=== PATIENT | male | born 1990 | race Caucasian/White ===

== ENCOUNTER 2016-12-17 04:42 | Emergency (ER) | payer OTHER ==
[2016-12-17] MEDS ORDERED: LIDOCAINE 1% INJ-PF (10 MG/ML) 30 ML SDV INJ ONE (07:42)
--- NOTE | 2016-12-17 07:43 | ER Document Report ---
ED Wound - General Chief Complaint: Laceration Stated Complaint: LEG LACERATION Time seen by provider: 07:43 Mode of Arrival: Medic Information source: Patient, Friend Notes: 26 yo admitted alcoholic cut leg on table in kitchen early this am. No head injury. Difficult to wake up. Girlfriend who is sober is in the room. Tetanus status is unknown. - Related Data Allergies/Adverse Reactions: No Known Allergies Allergy (Verified 12/17/16 05:05) Home Medications: Current Home Medications Dextroamphetamine/Amphetamine [Adderall 30 mg Tablet] 1 tab PO DAILY 12/17/16 [ History] Past Medical History - General Information source: Patient - Social History Smoking Status: Current Every Day Smoker Frequency of alcohol use: Heavy - 5 days of week, shakes if he doesn't drink Drug Abuse: None Lives with: Spouse/Significant other Family History: Hyperlipidemia - Medical History Medical History: Negative Psychiatric Medical History: Reports: Hx Attention Deficit Hyperactivity Disorder Traumatic Medical History: Reports: Hx Fractures Past Surgical History: Reports: Hx Abdominal Surgery, Hx Oral Surgery - screws to jaw, teeth - Immunizations Immunizations up to date: Yes Hx Diphtheria, Pertussis, Tetanus Vaccination: Yes - 2007 Review of Systems - Review of Systems Constitutional: No symptoms reported EENT: No symptoms reported Cardiovascular: No symptoms reported Respiratory: No symptoms reported Gastrointestinal: No symptoms reported Genitourinary: No symptoms reported Male Genitourinary: No symptoms reported Musculoskeletal: No symptoms reported Skin: See HPI Hematologic/Lymphatic: No symptoms reported Neurological/Psychological: No symptoms reported Physical Exam - Vital signs Vitals: Temp Pulse Resp BP Pulse Ox 97.6 F 91 18 125/81 98 12/17/16 04:55 12/17/16 04:55 12/17/16 04:55 12/17/16 04:55 12/17/16 04:55 Interpretation: Normal - General General appearance: Appears well, Other - mood labile, was difficult to wake up , smells of ETOH - HEENT Head: Normocephalic, Atraumatic. No: Abrasions, Estrada's sign, Ecchymosis, [place]'s eyes Eyes: Normal Conjunctiva: Injected Extraocular movements intact: Yes - no nystagmus Pupils: PERRL Neck: Supple - non tender - Respiratory Respiratory status: No respiratory distress Chest status: Nontender Breath sounds: Normal Chest palpation: Normal - Cardiovascular Rhythm: Regular Heart sounds: Normal auscultation Murmur: No - Abdominal Inspection: Normal Distension: No distension Bowel sounds: Normal Tenderness: Nontender. No: Tender Organomegaly: No organomegaly - Back Back: Normal, Nontender - Extremities General upper extremity: Normal inspection, Nontender, Normal color, Normal ROM , Normal temperature General lower extremity: Normal inspection, Nontender, Normal color, Normal ROM , Normal temperature, Normal weight bearing. No: Mor's sign Thigh: Laceration - 10 cm right anterior linear laceration to subq tissue - Neurological Neuro grossly intact: Yes Cognition: Normal Orientation: AAOx4 [place] Coma Scale Eye Opening: Spontaneous [place] Coma Scale Verbal: Oriented [place] Coma Scale Motor: Obeys Commands [place] Coma Scale Total: 15 Speech: Normal Motor strength normal: LUE, RUE, LLE, RLE Sensory: Normal - Psychological Associated symptoms: Normal affect, Normal mood - Skin Skin Temperature: Warm Skin Moisture: Dry Skin Color: Normal Notes: see above Course - Re-evaluation Re-evalutation: 12/17/16 09:[address] Lyons states patient can go home with a sober [employer] truck driver who will take responsiblity for him. Girlfriend is also sober. - Vital Signs Vital signs: Temp Pulse Resp BP Pulse Ox 97.8 F 79 18 134/90 H 95 12/17/16 09:22 12/17/16 09:22 12/17/16 09:22 12/17/16 09:22 12/17/16 09:22 Procedures - Laceration/Wound Repair Right Leg Time completed: 09:00 Wound length (cm): 10 Wound's Depth, Shape: Linear Laceration pre-procedure: Sterile drapes applied, Other - surgiscrub Volume Anesthetic (mLs): 15 Wound explored: Clean Irrigated w/ Saline (mLs): 200 Wound Repaired With: Sutures Suture Size/Type: 3:0, Nylon Number of Sutures: 9 - vertical mattress Layer Closure?: No Post-procedure wound care: Sterile dressing applied - bacitracin, coban Discharge - Discharge Clinical Impression: right leg laceration repair, Alcoholism Condition: Good Disposition: HOME, SELF-CARE Instructions: Antibiotic Ointment Protection (OM), Tetanus Immunization Given (OM), Chronic Alcoholism (OM) Additional Instructions: elevate leg today resources given for alcohol rehab which you are not choosing today motrin for pain sutures out in 12 days Referrals: VIRGEN ALBA FNP [Primary Care Provider] - Follow up as needed
[2016-12-17] MEDS ORDERED: DIPH/PERTUSS(ACELL)/TETANUS VAC/PF 0.5 ML SYR (>=10YO) IM ONE (09:02)
[2016-12-17 09:28] VITALS: BP 134/90
== END 2016-12-17 09:28 | disposition home or self-care (01) ==
LOC: ER 04:42
PROC: 0HQKXZZ Repair Right Lower Leg Skin, External Approach (ICD-10-PCS; principal; 2016-12-17)
DX: S81.811A Laceration without foreign body, right lower leg, initial encounter (principal); F10.20 Alcohol dependence, uncomplicated; W22.03XA Walked into furniture, initial encounter; F17.200 Nicotine dependence, unspecified, uncomplicated; Z23 Encounter for immunization
CPT/HCPCS: 90471; 90715; 99283

== ENCOUNTER 2017-03-27 14:03 | Emergency (ER) | payer OTHER ==
--- NOTE | 2017-03-27 15:26 | ER Document Report ---
ED Substance Abuse / Acc. OD - General Chief Complaint: ETOH Abuse Stated Complaint: PSYCH EVALUATION Time Seen by Provider: 03/27/17 15:14 Mode of Arrival: Ambulatory Information source: Patient, Parent Notes: This is a 26-year-old male with a history of alcohol abuse who presents intoxicated and threatening self-harm. Majority of the history is taken from patient's father. Patient's father states that he received a phone call earlier today from the patient states stating that he was going to cut himself and kill himself. Father states that he found patient's apartment in a state of disarray. Patient states that he drinks too much and would like some help with this. He still states that he wants to harm himself. - Related Data Allergies/Adverse Reactions: No Known Allergies Allergy (Verified 12/17/16 05:05) Past Medical History - General Information source: Parent Cannot obtain history due to: Uncooperative, Altered mental status - Social History Smoking Status: Unknown if Ever Smoked Frequency of alcohol use: Heavy Drug Abuse: None Family History: Hyperlipidemia Renal/ Medical History: Denies: Hx Peritoneal Dialysis Psychiatric Medical History: Reports: Hx Attention Deficit Hyperactivity Disorder Traumatic Medical History: Reports: Hx Fractures Past Surgical History: Reports: Hx Abdominal Surgery, Hx Oral Surgery - screws to jaw, teeth - Immunizations Immunizations up to date: Yes Hx Diphtheria, Pertussis, Tetanus Vaccination: Yes - 2007 Review of Systems - Review of Systems -: Yes ROS unobtainable due to patient's medical condition Physical Exam - Vital signs Vitals: Temp Pulse Resp BP Pulse Ox 98.9 F 100 20 144/93 H 96 03/27/17 14:07 03/27/17 14:07 03/27/17 14:07 03/27/17 14:07 03/27/17 14:07 - Notes Notes: PHYSICAL EXAMINATION: GENERAL: Well-nourished adult male who is intoxicated and uncooperative. He smells of alcohol. He is conversant. HEAD: Atraumatic, normocephalic. EYES: Pupils equal round and reactive to light, extraocular movements intact, sclera anicteric, conjunctiva are normal. ENT: nares patent, oropharynx clear without exudates. Moist mucous membranes. NECK: Normal range of motion, supple without lymphadenopathy LUNGS: Breath sounds clear to auscultation bilaterally and equal. No wheezes rales or rhonchi. HEART: Regular rate and rhythm without murmurs ABDOMEN: Soft, nontender, normoactive bowel sounds. EXTREMITIES: Normal range of motion NEUROLOGICAL: Cranial nerves grossly intact. Moves all 4 spontaneously. Not cooperative with full neurologic exam PSYCH: Anxious, agitated, noncooperative and threatening self-harm. Course - Re-evaluation Re-evalutation: 03/27/17 16:34 Patient has become increasingly aggressive and violent in the emergency department. He has been placed in restraints for his protection and the protection of the staff. He will also be given medication to include Haldol, Benadryl, and Ativan. At this time he is violent and aggressive and not able to be redirected. - Vital Signs Vital signs: Temp Pulse Resp BP Pulse Ox 97.7 F 73 16 136/79 H 93 03/28/17 13:28 03/28/17 13:28 03/28/17 03:24 03/28/17 13:28 03/28/17 13:28 - Laboratory Result Diagrams: 03/27/17 16:05 03/28/17 10:40 Laboratory results interpreted by me: 03/27/17 03/27/17 03/28/17 16:05 16:05 10:40 RBC 5.69 H Sodium 152.5 H Potassium 5.9 H Glucose 118 H Total Protein 9.0 H Albumin 5.4 H Salicylates < 1.0 L Acetaminophen < 10 L Serum Alcohol 316 H* Discharge - Discharge Clinical Impression: Alcohol abuse Condition: Stable Disposition: HOME, SELF-CARE Additional Instructions: Acute Alcohol Intoxication Your evaluation revealed very high levels of alcohol. You can from drinking a large amount of alcohol rapidly! Further, there's the risk of falls , traffic accidents, and fights. A high portion (about 50 percent) of the serious injuries seen in hospital emergency rooms are caused by alcohol. Alcohol overdosage is usually due to an underlying emotional or psychiatric problem. You may benefit from counselling. If "binge" drinking is an ongoing problem for you, or if you drink ANY AMOUNT of alcohol EVERY day, you most likely have a tendency to alcoholism. You should avoid alcohol totally. We can refer you for treatment. Persons with alcohol problems are often also prone to other addictions -- you should discuss any use of medications or drugs with the doctor. Please follow up with drug and alcohol treatment. Please return if your symptoms worsen. Alcohol withdrawal can be deadly. Please follow medical advice. Referrals: VIRGEN ALBA FNP [Primary Care Provider] - Follow up as needed
--- NOTE | 2017-03-27 16:09 | PSYCHOLOGICAL NOTE ---
Psych Note - Psych Note Psych Note: Patient is a 26 year old male who presented with c/o SI, per his father. Attempted to evaluate the patient; however, he presents with slurred speech and making nonsensical statements. Patient is likely acutely intoxicated as he also smells of alcohol. Patient is cursing loudly and has been placed n 4pt restraints for everyone's safety and his own. Will evaluate at a later time.
[2017-03-27 16:31] LABS: ABSOLUTE BASOPHILS # (AUTO) 0.1 10^3/uL (0.0-0.2); ABSOLUTE EOSINOPHILS # (AUTO) 0.2 10^3/uL (0.0-0.6); ABSOLUTE MONOCYTES (AUTO) 0.4 10^3/uL (0.1-1.4); ABSOLUTE NEUT (AUTO) 3.6 10^3/uL (1.7-8.2); BASOPHILS % (AUTO) 0.8 % (0-2); HEMATOCRIT 49.7 % (37.9-51.0); HEMOGLOBIN 16.2 g/dL (13.5-17.0); HGB HCT DIFFERENCE -1.1; LYMPHOCYTES % (AUTO) 41.8 % (13-45); MEAN CORPUSCULAR HEMOGLOBIN 28.5 pg (27.0-33.4); MEAN CORPUSCULAR HGB CONC 32.6 g/dL (32.0-36.0); MEAN CORPUSCULAR VOLUME 88 fl (80-97); MONOCYTES % (AUTO) 5.2 % (3-13); RED BLOOD COUNT 5.69 10^6/uL (4.35-5.55); RED CELL DISTRIBUTION WIDTH 13.8 % (11.5-14.0); SEGMENTED NEUTROPHILS % (AUTO) 49.2 % (42-78); WHITE BLOOD COUNT 7.3 10^3/uL (4.0-10.5)
[2017-03-27] MEDS ORDERED: LORAZEPAM INJ 2 MG/1 ML VIAL IV ONE (16:33)
[2017-03-27] MEDS ORDERED: DIPHENHYDRAMINE HCL 50 MG/ML VIAL IV ONE (16:33)
[2017-03-27] MEDS ORDERED: HALOPERIDOL LACTATE INJ 5 MG/1 ML VIAL IV ONE (16:33)
[2017-03-27 16:53] LABS: ALANINE AMINOTRANSFERASE 45 U/L (21-72); ALBUMIN 5.4 g/dL (3.5-5.0); ALKALINE PHOSPHATASE 62 U/L (38-126); ANION GAP 19 (5-19); ASPARTATE AMINO TRANSFERASE 42 U/L (17-59); BILIRUBIN,DIRECT 0.2 mg/dL (0.0-0.4); BILIRUBIN,TOTAL 0.7 mg/dL (0.2-1.3); BLOOD UREA NITROGEN 15 mg/dL (7-20); CALCIUM 9.9 mg/dL (8.4-10.2); CARBON DIOXIDE 27 mmol/L (22-30); CHLORIDE 107 mmol/L (98-107); CREATININE RESULT 0.92 mg/dL (0.52-1.25); GLUCOSE 101 mg/dL (75-110); POTASSIUM 5.9 mmol/L (3.6-5.0); SODIUM 152.5 mmol/L (137-145)
[2017-03-27 17:02] LABS: ALCOHOL 316 mg/dL (NONE DETECTED)
[2017-03-27] MEDS ORDERED: NORMAL SALINE 1000 ML 1,000 ML IV ONE (20:31)
--- NOTE | 2017-03-27 21:10 | EKG REPORT ---
SEVERITY:- NORMAL ECG - SINUS RHYTHM : Confirmed by: Cally Issa 27-Mar-2017 21:09:43
[2017-03-28 05:38] LABS: APPEARANCE,URINE CLEAR; BILIRUBIN,URINE NEGATIVE (NEGATIVE); GLUCOSE, URINE NEGATIVE (NEGATIVE); KETONES,URINE NEGATIVE (NEGATIVE); LEUKOCYTE ESTERASE,URINE NEGATIVE (NEGATIVE); NITRITE,URINE NEGATIVE (NEGATIVE); PROTEIN,URINE NEGATIVE (NEGATIVE); URINE SPECIFIC GRAVITY 1.015; UROBILINOGEN,URINE NEGATIVE mg/dL (<2.0)
[2017-03-28 05:45] LABS: URINE BARBITURATES SCREEN NEGATIVE; URINE METHADONE SCREEN NEGATIVE; URINE OPIATES LOW NEGATIVE; URINE PHENCYCLIDINE SCREEN NEGATIVE
[2017-03-28 12:43] LABS: ANION GAP 11 (5-19); BLOOD UREA NITROGEN 17 mg/dL (7-20); CALCIUM 9.9 mg/dL (8.4-10.2); CARBON DIOXIDE 29 mmol/L (22-30); CHLORIDE 98 mmol/L (98-107); CREATININE RESULT 0.85 mg/dL (0.52-1.25); GLUCOSE 118 mg/dL (75-110); SODIUM 137.7 mmol/L (137-145)
[2017-03-28 12:44] LABS: ALCOHOL < 10 mg/dL (NONE DETECTED)
[2017-03-28 12:56] LABS: POTASSIUM 4.3 mmol/L (3.6-5.0)
--- NOTE | 2017-03-28 13:17 | ER Document Report ---
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 Onset: Just prior to arrival Onset was: Sudden Suicide Risk Factors: Frightened friends/family, Substance abuse - ETOH Normal mood: Yes Associated symptoms: Normal affect, Normal mood, Aggressive - at arrival, Agitated - at arrival, Irritable - at arrival, Labile - at arrival Similar symptoms previously: Yes - long hx of ETOH abuse Recently seen / treated by doctor: No <RUTHANN GÓMEZ - Last Filed: 03/28/17 13:08> <LUCY FRANCE - Last Filed: 03/28/17 13:21> - General Chief Complaint: ETOH Abuse Stated Complaint: PSYCH EVALUATION Time Seen by Provider: 03/27/17 15:14 - HPI Notes: Patient is a 26-year-old male who initially presented yesterday evening acutely intoxicated. Patient was held under the involuntary commitment for his safety and the safety of others due to acute agitation and reports of SI. Patient this morning states he is not suicidal, but does acknowledge that he has a drinking problem. Patient reports he is agreeable to engage in drug and alcohol treatment. Patient and mother were provided contact information for local resources, to include the [facility]. Patient endorses daily liquor and beer drinking patient is psychiatrically cleared and recommended for recent IVC.. Patient's mother is bedside and asked numerous questions related to placement at the treatment center and/or other treatment centers. Answered all questions to the best of my ability. Patient is alert and oriented 4. Mood is irritable with normal affect. Patient denies suicidal/homicidal ideations, intent, plan, means. Patient denies A/VH; delusions not noted. Thought processes were organized, but guarded. Conversational speech was WNL for prosody. Intellectual abilities were estimated within average range. Attention and focus were fair. Insight, judgment, impulse control are poor. Unspecified alcohol use disorder Patient no longer meets criteria as he denies SI/HI. Patient is interested in substance abuse treatment, specifically alcohol detox. Patient and mother were provided resources to include the [facility]. Information was faxed to the [facility] to assist in facilitating placement. I consulted with Dr. Durán in regards to the care management of this patient. (RUTHANN GÓMEZ) - Related Data Allergies/Adverse Reactions: No Known Allergies Allergy (Verified 12/17/16 05:05) Past Medical History - General Information source: Parent - Social History Smoking Status: Current Every Day Smoker Cigarette use (# per day): Yes Chew tobacco use (# tins/day): No Smoking Education Provided: Yes Frequency of alcohol use: Heavy Drug Abuse: None Family History: Hyperlipidemia Patient has suicidal ideation: No Patient has homicidal ideation: No Renal/ Medical History: Denies: Hx Peritoneal Dialysis Psychiatric Medical History: Reports: Hx Attention Deficit Hyperactivity Disorder Traumatic Medical History: Reports: Hx Fractures Past Surgical History: Reports: Hx Abdominal Surgery, Hx Oral Surgery - screws to jaw, teeth - Immunizations Immunizations up to date: Yes Hx Diphtheria, Pertussis, Tetanus Vaccination: Yes - 2007 <RUTHANN GÓMEZ - Last Filed: 03/28/17 13:08> Course - Laboratory Result Diagrams: 03/27/17 16:05 03/28/17 10:40 <RUTHANN GÓMEZ - Last Filed: 03/28/17 13:08> - Laboratory Result Diagrams: 03/27/17 16:05 03/28/17 10:40 <LUCY FRANCE - Last Filed: 03/28/17 13:21> - Re-evaluation Re-evalutation: 03/28/17 13:21 Patient denies current SI. He is willing to proceed with voluntary alcohol rehab. Family supportive. Appropriate for discharge today. (LUCY FRANCE) - Vital Signs Vital signs: Temp Pulse Resp BP Pulse Ox 97.8 F 96 16 129/84 H 96 03/28/17 06:18 03/28/17 06:18 03/28/17 03:24 03/28/17 06:18 03/28/17 06:18 - Laboratory Laboratory results interpreted by ak: 03/27/17 03/27/17 03/28/17 16:05 16:05 10:40 RBC 5.69 H Sodium 152.5 H Potassium 5.9 H Glucose 118 H Total Protein 9.0 H Albumin 5.4 H Salicylates < 1.0 L Acetaminophen < 10 L Serum Alcohol 316 H* Discharge <RUTHANN GÓMEZ - Last Filed: 03/28/17 13:08> <LUCY FRANCE - Last Filed: 03/28/17 13:21> - Discharge Clinical Impression: Alcohol abuse Condition: Stable Disposition: HOME, SELF-CARE Additional Instructions: Acute Alcohol Intoxication Your evaluation revealed very high levels of alcohol. You can from drinking a large amount of alcohol rapidly! Further, there's the risk of falls , traffic accidents, and fights. A high portion (about 50 percent) of the serious injuries seen in hospital emergency rooms are caused by alcohol. Alcohol overdosage is usually due to an underlying emotional or psychiatric problem. You may benefit from counselling. If "binge" drinking is an ongoing problem for you, or if you drink ANY AMOUNT of alcohol EVERY day, you most likely have a tendency to alcoholism. You should avoid alcohol totally. We can refer you for treatment. Persons with alcohol problems are often also prone to other addictions -- you should discuss any use of medications or drugs with the doctor. Please follow up with drug and alcohol treatment. Please return if your symptoms worsen. Alcohol withdrawal can be deadly. Please follow medical advice. Referrals: VIRGEN ALBA FNP [Primary Care Provider] - Follow up as needed
[2017-03-28 13:34] VITALS: BP 136/79
== END 2017-03-28 13:30 | disposition home or self-care (01) ==
LOC: ER 14:03
DX: F10.129 Alcohol abuse with intoxication, unspecified (principal); F17.210 Nicotine dependence, cigarettes, uncomplicated
CPT/HCPCS: 93005; 99285; 96374; 96375; 36415; 80307 ×4; 85025; 80048; 80053; 81001; 93010; J1200; J1630; J2060; J7030

== ENCOUNTER 2017-06-25 01:37 | Emergency (ER) | payer OTHER ==
[2017-06-25] MEDS ORDERED: LIDOCAINE 1% INJ (10 MG/ML) 10 ML MDV INJ ONE (01:52)
[2017-06-25] MEDS ORDERED: LIDOCAINE 1% INJ-PF (10 MG/ML) 30 ML SDV ONE (02:05)
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
[2017-06-25 03:29] VITALS: BP 121/79
== END 2017-06-25 03:30 | disposition home or self-care (01) ==
LOC: ER 01:37
PROC: 0HQEXZZ Repair Left Lower Arm Skin, External Approach (ICD-10-PCS; principal; 2017-06-25)
DX: S51.812A Laceration without foreign body of left forearm, initial encounter (principal); X99.8XXA Assault by other sharp object, initial encounter
CPT/HCPCS: 99283

== ENCOUNTER 2019-05-02 21:04 | Emergency (ER) | payer OTHER ==
[2019-05-03] MEDS ORDERED: NORMAL SALINE 1000 ML 1,000 ML IV ONE (00:45)
--- NOTE | 2019-05-03 02:00 | RADIOLOGY REPORT (SQ) ---
EXAM DESCRIPTION: XR CHEST 1 VIEW COMPLETED DATE/TME: 05/03/2019 00:45 CLINICAL HISTORY: 28 years Male, dyspnea COMPARISON: None. NUMBER OF VIEWS/TECHNIQUE: 1/AP FINDINGS: Adequate lung volume, clear parenchyma, normal cardiac silhouette, and intact bony thorax. IMPRESSION: No acute cardiopulmonary findings.
--- NOTE | 2019-05-03 04:37 | ER Document Report ---
ED General - General Chief Complaint: Overdose Stated Complaint: POSSIBLE OVERDOSE Time Seen by Provider: 05/03/19 00:31 Primary Care Provider: VIRGEN ALBA FNP [Primary Care Provider] - Follow up as needed Notes: Patient is a pleasant 28-year-old male who presents after accidental heroin overdose. Patient says he only uses heroin occasionally. He says that tonight he snorted some heroin and is lessening remembered. His girlfriend walked him and found him cyanotic and not breathing. Paramedics arrived and gave him Narcan and immediately awoke with the Narcan. Patient says he does not try to hurt himself. He says he was driving. He denies being suicidal. He denies any other complaints at this time and says he is otherwise healthy. - Related Data Allergies/Adverse Reactions: No Known Allergies Allergy (Verified 12/17/16 05:05) Past Medical History - Social History Smoking Status: Never Smoker Frequency of alcohol use: None Drug Abuse: Heroin Family History: Hyperlipidemia Patient has suicidal ideation: No Patient has homicidal ideation: No Renal/ Medical History: Denies: Hx Peritoneal Dialysis Psychiatric Medical History: Reports: Hx Attention Deficit Hyperactivity Disorder Traumatic Medical History: Reports: Hx Fractures Past Surgical History: Reports: Hx Abdominal Surgery, Hx Oral Surgery - screws to jaw, teeth - Immunizations Immunizations up to date: Yes Hx Diphtheria, Pertussis, Tetanus Vaccination: Yes - 2007 Review of Systems - Review of Systems Notes: My Normal Review Basic REVIEW OF SYSTEMS: CONSTITUTIONAL : Denies fever, chills, or sweats. Denies recent illness. EENT: Denies eye, ear, throat, or mouth pain or symptoms. Denies nasal or sinus congestion. RESPIRATORY: Became apneic after heroin overdose. GASTROINTESTINAL: Denies abdominal pain. Vomiting MUSCULOSKELETAL: Denies neck or back pain or joint pain or swelling. SKIN: Denies rash or skin lesions. NEUROLOGICAL: Denies altered mental status or loss of consciousness. Denies headache. Denies weakness or paralysis or loss of use of either side. Denies problems with gait or speech. Denies sensory or motor loss. ALL OTHER SYSTEMS REVIEWED AND NEGATIVE. Physical Exam - Vital signs Vitals: Resp Pulse Ox 16 100 05/02/19 21:09 05/02/19 21:09 - Notes Notes: General Appearance: Well nourished, little bit somnolent, cooperative, no acute distress, no obvious discomfort. Vitals: reviewed, See vital signs table. Head: no swelling or tenderness to the head Eyes: PERRL, EOMI, Conjuctiva clear Mouth: No decreasd moisture Lungs: No wheezing, No rales, No rhonci, No accessory muscle use, good air exch woody bilaterally. Heart: Normal rate, Regular rythm, No murmur, no rub Abdomen: Normal BS, soft, No rigidity, No abdominal tenderness, No guarding, no rebound Extremities: strength 5/5 in all extremities, good pulses in all extremities, no swelling or tenderness in the extremities, no edema. Skin: warm, dry, appropriate color, no rash Neuro: speech clear, oriented x 3, normal affect, responds appropriately to questions. Course - Re-evaluation Re-evalutation: 05/03/19 07:02 Patient was observed on monitor for several hours. He is now awake and alert and walking without any difficulty. Is not slurring his words. He has no hypoxemia. He is well-appearing. I feel he safe to be discharged home. I talked patient about the dangers of heroin use and to avoid using it ever again. He is not using regular basis and just uses once in a while. I informed him that recurrent uses of heroine would eventually lead to him not breathing and could potentially cause him . I did prescribe Narcan. He says he will avoid heroin use at all costs; however, I informed him that some people still go back to using therefore I would still prefer that he fill the prescription for Narcan and kept it with him in case he had a relapse. Patient otherwise looks well and has no further concerns. Patient will be discharged home. Patient's girlfriend is at bedside and will be driving him home. Dictation of this chart was performed using voice recognition software; therefore, there may be some unintended grammatical errors. - Vital Signs Vital signs: Temp Pulse Resp BP Pulse Ox 97.6 F 13 130/79 H 96 05/02/19 21:13 05/03/19 04:01 05/03/19 04:01 05/03/19 04:01 Discharge - Discharge Clinical Impression: Opiate overdose Qualifiers: Encounter type: initial encounter Injury intent: accidental or unintentional Qualified Code(s): T40.601A - Poisoning by unspecified narcotics, accidental (unintentional), initial encounter Condition: Stable Disposition: HOME, SELF-CARE Additional Instructions: I have prescribed you Narcan. People will still potentially overdose or take too much of an opiate medication. Please keep the Narcan with you so as if you do overdose again you have a medication that can reverse the overdose so that you do not stop breathing. If you have to use the Narcan you should return to the ER immediately. Please do your best to stay away from opiate medications including heroin. Return to ER immediately if you have any difficulty breathing. Prescriptions: Naloxone HCl [Narcan] 4 mg NS FIFI #1 spray Referrals: VIRGEN ALBA FNP [Primary Care Provider] - Follow up as needed
[2019-05-03 04:45] VITALS: BP 130/79
== END 2019-05-03 04:50 | disposition home or self-care (01) ==
LOC: ER 21:04
DX: T40.1X1A Poisoning by heroin, accidental (unintentional), initial encounter (principal); X58.XXXA Exposure to other specified factors, initial encounter
CPT/HCPCS: 99284; 96360; 71045; J7030